=== PATIENT | male | born 1970 | race Caucasian/White ===

== ENCOUNTER 2018-02-19 07:00 | Outpatient (CLI) | payer BC ==
--- NOTE | 2018-02-19 08:03 | ULT ---
RENAL ULTRASOUND: HISTORY: Abnormal renal function tests. FINDINGS: Real-time imaging of the right and left kidneys was performed. The right kidney measures 11.1 and th e left kidney 12.4 cm in size. There is a tiny exophytic 1 cm cyst involving the mid pole region of the left kidney. Bladder region appears unremarkable. The liver appears to be of slight increased e chogenicity suggesting some fatty change. IMPRESSION: Normal-sized kidneys without evidence of obstruction. Tiny left renal cyst is incidentally noted. POS: [facility]
== END 2018-02-19 07:01 | disposition home or self-care (01) ==
LOC: SCSULT 07:00
PROVIDERS: ATTEND Family Medicine
DX: R79.89 Other specified abnormal findings of blood chemistry (principal)
CPT/HCPCS: 76770